=== PATIENT | male | born 1995 | race African-American/Black ===

== ENCOUNTER 2018-07-25 20:52 | Emergency (ER) | payer BC ==
[~2018-07-25] VITALS: Ht 180.3 cm; Wt 59.1 kg
[2018-07-25 20:56] VITALS: BP 118/70
[2018-07-25] MEDS ORDERED: ONDANSETRON 4MG ODT PO ONE (22:30)
[2018-07-25] MEDS ORDERED: BACITRACIN ZINC OINT UDPKT TOP ONE (22:30)
[2018-07-25] MEDS ORDERED: LIDOCAINE 1%/EPI 1:100,000 10 ML VIAL IJ ONE (22:30)
== END 2018-07-25 23:19 | disposition home or self-care (01) ==
LOC: ER 20:52
DX: S01.81XA Laceration without foreign body of other part of head, initial encounter (principal); R11.0 Nausea; W22.8XXA Striking against or struck by other objects, initial encounter; Y93.89 Activity, other specified; Y92.89 Other specified places as the place of occurrence of the external cause; Y99.8 Other external cause status
CPT/HCPCS: 12011; 99283; J3490; Q0162